=== PATIENT | female | born 1955 | race Hispanic/Latino ===

== ENCOUNTER 2017-10-24 17:40 | Emergency (ER) | payer OTHER ==
[2017-10-24 18:44] LABS: BASOPHILS % (AUTO) 0.2 % (0.0-5.0); EOSINOPHILS % (AUTO) 0.6 % (0.0-8.0); HEMATOCRIT 35.5 % (36-48); MEAN CORPUSCULAR HGB CONC 34.9 g/dL (32.0-36.0); MEAN CORPUSCULAR VOLUME 86.1 fL (79-99); NEUTROPHILS % (AUTO) 81.2 % (40.0-77.0); NUCLEATED RED BLOOD CELLS 0.1 % (0.0-0.19); PLATELET COUNT (AUTO) 266 K/uL (130-400); RED BLOOD CELL COUNT(AUTO) 4.12 MIL/uL (4.00-5.50); RED CELL DISTRIBUTION WIDTH 13.8 % (11.0-15.5); WHITE BLOOD COUNT (AUTO) 12.3 K/uL (4.8-10.8)
[2017-10-24 18:56] LABS: INR 0.89 (0.85-1.15); PARTIAL THROMBOPLASTIN TIME 26.8 SEC (26.3-35.5); PROTHROMBIN TIME 9.4 SEC (9.6-11.6)
[2017-10-24 19:02] LABS: CARBON DIOXIDE 31 mmol/L (21-32); CHLORIDE 104 mmol/L (101-111); CREATININE 1.3 mg/dL (0.5-1.5); GLOMERULAR FILTR. RATE CALC 44 mL/min (>60); GLUCOSE,RANDOM 115 mg/dL (70-105); POTASSIUM 4.5 mmol/L (3.5-5.1); SODIUM SERUM 139 mmol/L (136-145); UREA NITROGEN, BLOOD 13 mg/dL (7-18)
[2017-10-24 19:14] LABS: ALANINE AMINOTRANSFERASE 25 U/L (12-78); ALBUMIN 3.7 g/dL (3.5-5.0); ASPARTATE AMINOTRANSFERASE 22 U/L (10-37); BILIRUBIN,TOTAL 0.6 mg/dL (0.2-1.0); CREATINE KINASE MB < 0.5 ng/mL (0.5-3.6); CREATINE KINASE, TOTAL 40 U/L (21-232); TOTAL PROTEIN, SERUM 6.7 g/dL (6.0-8.3)
[2017-10-24] MEDS ORDERED: ASPIRIN 325 MG TABLET ONE (19:48)
[2017-10-24] MEDS ORDERED: SODIUM CHLORIDE 0.9% 500ML 500 ML IV ONE (19:50)
[2017-10-24] MEDS ORDERED: IOPAMIDOL-370 100 ML VIAL IV ONE ×2 (19:54→21:32)
[2017-10-24] MEDS ORDERED: SODIUM CHLORIDE 0.9% 1000ML 1,000 ML IV SCH (21:45)
[2017-10-24] MEDS ORDERED: ONDANSETRON HCL 4 MG/2 ML VIAL ONE (22:59)
[2017-10-24] MEDS ORDERED: SODIUM CHLORIDE 0.9% 1000ML 1,000 ML IV ONE (22:59)
[2017-10-24] MEDS ORDERED: MORPHINE SULFATE 8 MG/ML VIAL ONE (23:00)
[2017-10-25] MEDS ORDERED: MORPHINE SULFATE 8 MG/ML VIAL ONE (03:41)
[2017-10-25] MEDS ORDERED: SODIUM CHLORIDE 0.9% 1000ML 1,000 ML IV SCH (04:34)
[2017-10-25] MEDS ORDERED: HYDRALAZINE HCL 20 MG/ML VIAL IV PRN (04:45)
[2017-10-25] MEDS ORDERED: ONDANSETRON HCL 4 MG/2 ML VIAL IV PRN (04:45)
[2017-10-25] MEDS ORDERED: MORPHINE SULFATE 2 MG/ML 1ML SYG IV PRN (04:45)
[2017-10-25] MEDS ORDERED: ACETAMINOPHEN 325 MG TAB PO PRN (04:45)
[2017-10-25] MEDS ORDERED: NICARDIPINE IN NACL, ISO-OSM 200 ML IV ONE (06:05)
[2017-10-25] MEDS ORDERED: FENTANYL CITRATE PF 50 MCG/1 ML 2ML VIAL ONE (07:33)
== END 2017-10-25 09:29 | disposition home or self-care (01) ==
LOC: EDH 17:40 → UNDOADMIN 20:16 → EDHIP 20:16 → UNDODISIN 10-25 07:57 → EDH 10-25 09:29
DX: I71.00 Dissection of unspecified site of aorta (principal); I10 Essential (primary) hypertension; R07.9 Chest pain, unspecified; E78.5 Hyperlipidemia, unspecified; Z88.1 Allergy status to other antibiotic agents
CPT/HCPCS: 36415 ×2; 70450; 71045; 71275 ×2; 74174; 80053; 82550; 82553; 82948; 84484; 85025; 85610; 85730; 86850; 86900; 86901; 86922; 87880; 93005; 96361; 96365; 96366; 96375; 96376; 99291; J2270 ×2; J2405; J3010; J3490; J7030; J7040; Q9967 ×2

== ENCOUNTER 2025-01-06 01:31 | Emergency (ER) | payer OTHER, MEDICARE ==
[~2025-01-06] VITALS: Ht 162.6 cm; Wt 94.3 kg
--- NOTE | 2025-01-06 01:42 | NUR ---
PT CARE ASSUMED AT THIS TIME
--- NOTE | 2025-01-06 01:52 | ERN ---
General Chief Complaint: Back Pain-No Injury Stated Complaint: C/O BACK PAIN RADIATING TO ABDOMEN Time Seen by MD: 01:50 Source: patient History of Present Illness Initial Comments This is a 69-year-old female was woken from her sleep yesterday morning around 7:00 a.m. with extreme back pain. The pain was made worse by moving and is is tolerable as long as she does not move. She took some Advil it did not help. She states no other symptoms: No chest pain no shortness of breath no mental status changes no changes in urination no bloody urine no changes in bowel movements no abdominal pain. Patient does have a history of a type a aortic aneurysm which was discovered incidentally on a CT scan for neck pain. Allergies: Coded Allergies: amoxicillin (Verified Allergy, Unknown, 10/24/17) Past Medical History Past Medical History: Hypertension Past Surgical History: Other Surgical History Other: HX OF RUPTURED AORTA (2017) Constitutional: (-) chills, (-) diaphoresis, (-) fever, (-) malaise, (-) weakness, (-) other documentation EENTM: (-) eye pain, (-) blurred vision, (-) tearing, (-) double vision, (-) ear pain, (-) ear discharge, (-) nose pain, (-) nose congestion, (-) throat pain, (-) Throat swelling, (-) mouth pain, (-) tooth pain, (-) mouth swelling, (-) other documentation Respiratory: (-) cough, (-) orthopnea, (-) short of breath, (-) stridor, (-) wheezing, (-) other documentation Cardiovascular: (-) chest pain, (-) edema, (-) palpitations, (-) syncope, (-) dyspnea on exertion, (-) other documentation Gastrointestinal/Abdominal: (-) nausea, (-) vomiting, (-) diarrhea, (-) abdominal pain, (-) abdominal distention, (-) constipation, (-) rectal bleeding, (-) dark stool/melena, (-) other documentation Genitourinary: (-) vaginal discharge, (-) vaginal bleeding, (-) dysuria, (-) frequency, (-) hematuria, (-) pain, (-) other documentation Musculoskeletal: (-) Neck pain, (-) back pain, (-) Flank Pain, (-) joint pain, (-) joint swelling, (-) muscle pain, (-) muscle stiffness, (-) gout, (-) other documentation Skin: (-) laceration, (-) contusion, (-) abrasion, (-) abscess, (-) rash, (-) change in color, (-) change in hair, (-) change in nails, (-) diaphoresis, (-) dryness, (-) other documentation Neuro: (-) altered mental status, (-) headache, (-) syncope, (-) paralysis, (-) numbness, (-) seizure, (-) pre-existing deficit, (-) tremors, (-) weakness, (-) dizziness, (-) slurred speech, (-) vertigo, (-) other documentation Physical Exam General Appearance: (+) moderate distress Orientation: (+) alert, (+) oriented x 3 Head/Face Trauma: No Eye: bilateral eye normal inspection, bilateral eye PERRL, bilateral eye EOMI Ear, Nose, Throat: (+) hearing grossly normal, (+) normal ENT inspection Neck: (+) normal inspection, (+) supple, (+) full range of motion Respiratory: (+) chest non-tender, (+) lungs clear, (+) well ventilated Heart: (+) regular, (+) no gallop Vascular: (+) no edema, (+) normal peripheral pulse Gastrointestinal: (+) soft, (+) non-tender, (+) no organomegaly, (+) bowel sound present Back: (+) no vertebral tenderness Back Comment Patient has a excruciating pain on the left paraspinal muscles that starting around T4 and down. The her paraspinal muscle on the left is also exquisitely tender, she has no midline vertebral tenderness. Results Laboratory and Microbiology Lab and Micro Result Laboratory Tests Test 01/06/25 02:31 White Blood Count 11.3 K/uL (4.8-10.8) H Red Blood Count 4.53 MIL/uL (4.00-5.50) Hemoglobin 13.5 g/dL (12.0-16.0) Hematocrit 40.5 % (36-48) Mean Corpuscular Volume 89.4 fL (79-99) Mean Corpuscular Hemoglobin 29.8 pg (27.0-33.0) Mean Corpuscular Hemoglobin Concent 33.3 g/dL (32.0-36.0) Red Cell Distribution Width 14.1 % (11.0-15.5) Platelet Count 227 K/uL (130-400) Mean Platelet Volume 10.1 fL (7.5-10.5) Immature Granulocyte % (Auto) 0.4 % (0-1) Neutrophils (%) (Auto) 78.5 % (40.0-77.0) H Lymphocytes (%) (Auto) 12.9 % (21.0-51.0) L Monocytes (%) (Auto) 6.7 % (3.0-13.0) Eosinophils (%) (Auto) 1.2 % (0.0-8.0) Basophils (%) (Auto) 0.3 % (0.0-5.0) Neutrophils # (Auto) 8.9 K/uL (1.8-7.7) H Lymphocytes # (Auto) 1.5 K/uL (1.0-4.8) Monocytes # (Auto) 0.8 K/uL (0.1-1.0) Eosinophils # (Auto) 0.14 K/uL (0.00-0.70) Basophils # (Auto) 0.03 K/uL (0.00-0.20) Absolute Immature Granulocyte (auto 0.04 K/uL (0-1) Nucleated Red Blood Cells 0.0 % (0.0-0.19) Sodium Level 128 mmol/L (136-145) L Potassium Level 4.1 mmol/L (3.5-5.1) Chloride Level 94 mmol/L (101-111) L Carbon Dioxide Level 31 mmol/L (21-32) Blood Urea Nitrogen 9 mg/dL (7-18) Creatinine 0.9 mg/dL (0.5-1.0) Glomerular Filtration Rate Calc 69 mL/min (>90) Random Glucose 94 mg/dL (70-105) Total Calcium 9.1 mg/dL (8.5-10.1) MDM Orders written at 2:02 a.m. The pain does appear to be musculoskeletal in o rigin. However given the history of an aortic aneurysm I feel compelled to do a CT scan with IV contrast. CT scan official read came back at 5:04 a.m.. 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 In the meantime patient has gotten up and gone to the bathroom and her pain in her back is well-controlled with the Flexeril and the ketorolac that I gave her. I discussed her going home on Flexeril and ketorolac for a few days and she was amenable to that plan. ED Course Orders Procedure Category Date Status Time Ketorolac PHA 01/06/25 Complete Tromethamine 30mg/Ml 02:30 Cyclobenzaprine Hcl PHA 01/06/25 Complete (Cyclobenzaprine Hcl 02:30 Basic Metabolic Panel LAB 01/06/25 Complete 02:02 Cbc With Differential LAB 01/06/25 Complete 02:02 Ct Chest/Abd/Pelv CT 01/06/25 Taken W/Wo Contras 02:02 Lactated Ringers PHA 01/06/25 Complete 1000ml (Lactated 02:02 Iohexol (Omnipaque) PHA 01/06/25 Complete 03:11 Current Medications Medications (Trade) Dose Ordered Sig/Sajan Route PRN Reason Start Time Stop Time Status Last Admin Dose Admin Cyclobenzaprine HCl (Cyclobenzaprine HCl) 10 mg ONCE ONCE PO 01/06/25 02:30 01/06/25 02:31 DC 01/06/25 02:36 Iohexol (Omnipaque) 35,000 mg STK-MED ONCE IV 01/06/25 03:11 01/06/25 03:11 DC Ketorolac Tromethamine (toRADol) 30 mg ONCE ONCE IVP 01/06/25 02:30 01/06/25 02:31 DC 01/06/25 02:37 Lactated Ringer's (Lactated Ringers 1000ml) 1,000 ml BOLUS STAT IV 01/06/25 02:02 01/06/25 02:09 DC 01/06/25 02:37 Vital Signs Date Time Temp Pulse Resp B/P (MAP) Pulse Ox O2 Delivery O2 Flow Rate FiO2 01/06/25 01:47 98.8 68 20 151/78 96 Room Air* 0 21 01/06/25 01:32 100.2 72 24 153/82 Room Air DX & DISP Disposition: Discharge Departure Impression: Primary Impression: Musculoskeletal back pain Condition: Stable Scripts Ketorolac Tromethamine (Toradol) 10 Mg Tab 1 TAB PO Q6HPRN PRN for pain for 5 Days, #20 TAB 0 Refills Prov: FATMATA OLIVO MD 01/06/25 Cyclobenzaprine HCl (Flexeril) 10 Mg Tab 10 MG PO TID for muscle sstiffness, #14 TAB 0 Refills Prov: FATMATA OLIVO MD 01/06/25 Additional Instructions: Please come back to the emergency room if you have symptoms that you can relate to your aortic aneurysm. Or decreased sensation and decreased circulation to your lower extremities or if you feel lightheaded or dizzy or faint Referrals: SELF,REFERRAL (PCP) FATMATA OLIVO MD Jan 06, 2025 01:52
[2025-01-06] MEDS: CYCLOBENZAPRINE HCL 10 MG TABLET PO ONE (02:36)
[2025-01-06] MEDS: ketOROlac 30MG VIAL (30MG/ML) IVP ONE (02:37)
[2025-01-06] MEDS: LACTATED RINGERS 1000ML IV STA (02:37)
[2025-01-06 02:40] LABS: BASOPHILS # (AUTO) 0.03 K/uL (0.00-0.20); BASOPHILS % (AUTO) 0.3 % (0.0-5.0); EOSINOPHILS # (AUTO) 0.14 K/uL (0.00-0.70); EOSINOPHILS % (AUTO) 1.2 % (0.0-8.0); HEMATOCRIT 40.5 % (36-48); IMMATURE GRANULOCYTE ABSOLUTE 0.04 K/uL (0-1); LYMPHOCYTES # (AUTO) 1.5 K/uL (1.0-4.8); LYMPHOCYTES % (AUTO) 12.9 % (21.0-51.0); MEAN CORPUSCULAR HEMOGLOBIN 29.8 pg (27.0-33.0); MEAN CORPUSCULAR HGB CONC 33.3 g/dL (32.0-36.0); MEAN CORPUSCULAR VOLUME 89.4 fL (79-99); MONOCYTES # (AUTO) 0.8 K/uL (0.1-1.0); MONOCYTES % (AUTO) 6.7 % (3.0-13.0); NEUTROPHILS # (AUTO) 8.9 K/uL (1.8-7.7); NEUTROPHILS % (AUTO) 78.5 % (40.0-77.0); PLATELET COUNT (AUTO) 227 K/uL (130-400); RED BLOOD CELL COUNT(AUTO) 4.53 MIL/uL (4.00-5.50); RED CELL DISTRIBUTION WIDTH 14.1 % (11.0-15.5); WHITE BLOOD COUNT (AUTO) 11.3 K/uL (4.8-10.8)
[2025-01-06 02:48] LABS: CREATININE 0.9 mg/dL (0.5-1.0); POTASSIUM 4.1 mmol/L (3.5-5.1)
[2025-01-06] MEDS ORDERED: IOHEXOL 350 MG/ML 100ML INFUS..BTL IV ONE (03:11)
[2025-01-06] MEDS ORDERED: CYCL10TA16 PO (05:35)
[2025-01-06] MEDS ORDERED: KETO10 PO (05:35)
[2025-01-06] MEDS: ketOROlac 15MG/ML VIAL (15MG/ML) IV ONE (05:44)
[2025-01-06 05:55] VITALS: BP 128/64; PULSE 64; RESP 16; TEMP 98.4; O2SAT 95
--- NOTE | 2025-01-06 08:58 | HMCIMG ---
CT CHEST/ABD/PELV W/WO CONTRAS HISTORY: Abdominal pain COMPARISON: October 24, 2017 TECHNIQUE: Multiple sequential axial images of the chest were obtained from the thoracic inlet through upper abdomen. Patient was given 100 cc of Omnipaque through intravenous route. FINDINGS: There is chronic type B dissection of the thoracic aorta with mural thrombus also seen on previous study. There is fusiform aneurysmal dilatation of proximal descending thoracic aorta measuring up to 4.2 cm. There is no evidence of pulmonary nodule or parenchymal disease. No pleural effusion or pericardial effusion is seen. There is no evidence of pneumothorax. There are normal size mediastinal and hilar lymph nodes. The heart is not enlarged. Degenerative changes of the thoracolumbar spine are present. There is no evidence of adrenal nodule. There is coronary artery calcification. Azygos lobe is seen. IMPRESSION: 1. No evidence of pulmonary nodule or effusion is seen. There is chronic type B dissection of the thoracic aorta with mural thrombus also seen on previous study. There is fusiform aneurysmal dilatation of proximal descending thoracic aorta measuring up to 4.[address] CHEST/ABD/PELV W/WO CONTRAS HISTORY: Abdominal pain COMPARISON: None TECHNIQUE: Multiple sequential axial images of the abdomen and pelvis were obtained from the dome of the diaphragm through symphysis pubis. Patient was given 100 cc of Omnipaque through intravenous route. Oral contrast was not given. FINDINGS: The liver, spleen, adrenal glands and pancreas are unremarkable. There is no evidence of hydronephrosis bilaterally. No evidence of renal stone is seen. Fecal material is seen in the colon. There are normal size retroperitoneal and mesenteric lymph nodes. No ascites is seen. There is chronic aortic dissection noted extending from the level of aortic arch into right common iliac artery also seen on previous study. There is aneurysmal dilatation noted of the descending thoracic aorta measuring up to 4.2 cm at the level of diaphragm. Pelvic sidewalls are symmetric bilaterally. Bladder is well distended without wall thickening. IMPRESSION: 1. There is chronic aortic dissection noted extending from the level of aortic arch into right common iliac artery also seen on previous study. There is aneurysmal dilatation noted of the descending thoracic aorta measuring up to 4.2 cm at the level of diaphragm. Report was given by the [facility] service. CT was performed with one or more following dose reduction techniques: automated exposure control, adjustment of the mA and kv according to patient's size, or use of a iterative reconstruction technique.
== END 2025-01-06 06:03 | disposition home or self-care (01) ==
LOC: EDH 01:31
DX: M54.6 Pain in thoracic spine (principal); I10 Essential (primary) hypertension; Z88.0 Allergy status to penicillin; Z98.890 Other specified postprocedural states
CPT/HCPCS: 99285; 71270; 96374; 96361; 80048; 85025; 36415; 74178; 96376; J1885 ×2; J7120; Q9967